=== PATIENT | male | born 1960 | race Caucasian/White ===

== ENCOUNTER 2021-06-21 12:45 | Emergency (ER) | payer BC ==
[2021-06-21] MEDS ORDERED: LIDOCAINE 1% INJ 10MG/ML (20 ML MDV) SQ ONE (13:00)
[2021-06-21] MEDS ORDERED: DIPH,PERTUS(ACELL)TETVAC-LF 0.5 ML VIAL IM ONE (13:00)
[2021-06-21 13:05] VITALS: RESP 17
--- NOTE | 2021-06-21 13:14 | ED ---
Wound/Laceration HPI - General Chief Complaint: Wound/Laceration Stated Complaint: Lt Thumb Laceration Time Seen by Provider: 06/21/21 12:58 Source: patient, RN notes reviewed Mode of arrival: ambulatory Limitations: no limitations - History of Present Illness Initial Comments: This a 60-year-old male presents emergency from chief complaint laceration to his left thumb. Patient states he was working with a table saw he she states he caught his thumb. He states last tetanus was approximately 10 years ago. Patient denies any significant bleeding he states it is painful. Patient offers no other complaints. - Related Data Previous Rx's Medication Instructions Recorded Cephalexin [Keflex] 500 mg PO Q6HR #28 cap 06/21/21 Allergies Allergy/AdvReac Type Severity Reaction Status Date / Time acetaminophen Allergy Unknown Verified 06/21/21 13:04 [From Darvocet-N] propoxyphene Allergy Unknown Verified 06/21/21 13:04 [From Darvocet-N] Review of Systems ROS Statement: Those systems with pertinent positive or pertinent negative responses have been documented in the HPI. ROS Other: All systems not noted in ROS Statement are negative. Past Medical History Past Medical History: No Reported History History of Any Multi-Drug Resistant Organisms: None Reported Past Surgical History: Orthopedic Surgery Past Psychological History: No Psychological Hx Reported Smoking Status: Former smoker Past Alcohol Use History: None Reported Past Drug Use History: None Reported General Exam Limitations: no limitations General appearance: alert, in no apparent distress Head exam: Present: atraumatic, normocephalic, normal inspection Extremities exam: Present: other (Left thumb there is 3 cm laceration the distal tip no active bleeding neurovascular intact) Course Vital Signs 06/21/21 12:56 Temperature 97.9 F Pulse Rate 83 Respiratory 17 Rate Blood Pressure 166/92 O2 Sat by Pulse 100 Oximetry Procedures - Laceration Laceration #1 Consent Obtained: verbal consent Site: hand Size (cm): 3 Description: flap, irregular Depth: simple, single layer Anesthetic Used: lidocaine 1% Anesthesia Technique: local infiltration Amount (mls): 3 Pre-repair: wound explored, irrigated extensively, deep structures intact Type of Sutures: nylon Size of Sutures: 4-0 Number of Sutures: 3 Technique: simple, interrupted Patient Tolerated Procedure: well, no complications Medical Decision Making - Medical Decision Making X-rays negative. No foreign bodies no bony involvement. Laceration was cleaned, attempted approximation of the wound edges. Disposition Clinical Impression: Laceration of left thumb Disposition: HOME SELF-CARE Condition: Stable Instructions (If sedation given, give patient instructions): Care For Your Stitches (ED), Finger Laceration (ED) Additional Instructions: Have sutures removed in 10 days.Please return to the Emergency Department if symptoms worsen or any other concerns. Prescriptions: Cephalexin [Keflex] 500 mg PO Q6HR #28 cap Is patient prescribed a controlled substance at d/c from ED?: No Referrals: None,Stated [Primary Care Provider] - 1-2 days Time of Disposition: 13:34
--- NOTE | 2021-06-21 13:22 | XR ---
EXAMINATION TYPE: XR finger LT DATE OF EXAM: 06/21/2021 COMPARISON: NONE HISTORY: Pain TECHNIQUE: Three views are submitted. FINDINGS: There is a small density near the DIP joint of the first digit along the dorsal surface. Difficult to determine if this is related to foreign body or possible tiny avulsion injury correlate clinically. IMPRESSION: 1. See above.
[2021-06-21 13:48] VITALS: BP 159/89; PULSE 75; TEMP 98.1
== END 2021-06-21 13:45 | disposition home or self-care (01) ==
LOC: EC 12:45
DX: S61.012A Laceration without foreign body of left thumb without damage to nail, initial encounter (principal); Z87.891 Personal history of nicotine dependence; Z88.6 Allergy status to analgesic agent; Z88.5 Allergy status to narcotic agent; Z23 Encounter for immunization; W23.1XXA Caught, crushed, jammed, or pinched between stationary objects, initial encounter; Y92.009 Unspecified place in unspecified non-institutional (private) residence as the place of occurrence of the external cause
CPT/HCPCS: 73140; 90715; 99283; 90471; 12042; J2001